=== PATIENT | female | born 1995 | race Caucasian/White ===

== ENCOUNTER 2018-07-10 18:39 | Emergency (ER) | payer BC, SELFPAY ==
[2018-07-10 18:41] VITALS: BP 121/67; PULSE 107; RESP 16; TEMP 36.7; O2SAT 98; BMI 23.7
--- NOTE | 2018-07-10 18:53 | RAD_ITS ---
STUDY: X-RAY - RIGHT WRIST REASON FOR EXAM: Female, 22 years old. Injury, fall. TECHNIQUE: 3 view(s) of the wrist were obtained. COMPARISON: None. FINDINGS: Normal visualized distal radius and ulna. Normal radiocarpal articulation. Normal distal radioulnar articulation. Normal carpal bones. Normal carpal articulations. Normal carpometacarpal articulation of the thumb. Normal second through fifth carpometacarpal articulations. Normal visualized metacarpal bones. The soft tissue structures are unremarkable. RAD/Wrist min 3 Views IMPRESSION: Normal x-ray examination of the wrist. Electronically Signed: Flora White MD at 20:02 EST Tel , Service support ,
--- NOTE | 2018-07-10 19:00 | RAD_ITS ---
STUDY: X-RAY - RIGHT HAND REASON FOR EXAM: Female, 22 years old. Injury. Patient fell. TECHNIQUE: 3 view(s) of the hand. COMPARISON: None. FINDINGS: Normal radiocarpal articulation. Normal distal radioulnar joint. Normal visualized carpal bones. Normal carpal articulations Normal carpometacarpal articulation of the thumb. Normal second through fifth carpometacarpal joints. Normal metacarpi. Normal metacarpophalangeal joint of the thumb. Normal interphalangeal joint of the thumb. Normal proximal and distal phalanges of the thumb. Normal metacarpophalangeal joints of the second through fifth fingers. Normal proximal and distal interphalangeal joints of the second through fifth fingers. Normal phalanges of the second through fifth fingers. The soft tissue structures are unremarkable. RAD/Hand Min 3 Views IMPRESSION: Normal x-ray examination of the hand. Electronically Signed: Flora White MD at 20:01 EST Tel , Service support ,
--- NOTE | 2018-07-10 19:25 | ED.VISSUMM ---
- ER Visit Summary Date of Service: 07/10/18 Chief Complaint: Right hand and wrist pain History of Present Illness: The patient is a 22 F presenting with right hand and wrist pain. Patient fell yesterday. She states she slipped on ice and fell catching herself with her right upper extremity. She did not hit her head or lose consciousness. She complains of persistent pain right hand and wrist. She is right-handed. Physical Examination: Vitals are stable. Patient is afebrile. Alert no acute distress. HEENT exam is unremarkable. Neck is supple. Lungs are clear and equal bilaterally. Heart is regular rate and rhythm. Extremities tenderness along the fourth and fifth metacarpal and diffuse right wrist. Active full range of motion. Skin is warm and dry. No focal neurologic deficit. Remainder of exam is unremarkable. Emergency Department Course and Treatment: X-ray right wrist and hand show no acute process. She is given a Velcro wrist splint. Advised to ice and elevate. Advised to follow-up with primary care physician. Advised return to ED if worsening complaints. Disposition: Discharge home Impression: Right wrist sprain This note was generated with [employer] dictation software. It may contain incorrect words, spelling, and punctuation that were not noted in review of the chart prior to signing ED Disposition - Plan for ED Patient: Instructions: ED Sprain Wrist Referrals: Augusto Simpson,Out of [Primary Care Provider] -
--- NOTE | 2018-07-10 20:08 | ED.DEP ---
ED Disposition - Plan for ED Patient: Instructions: ED Sprain Wrist Referrals: [facility],Out of [Primary Care Provider] -
[2018-07-10 20:27] VITALS: BP 118/68; PULSE 78; RESP 18; O2SAT 97
== END 2018-07-10 20:27 | disposition home or self-care (01) ==
LOC: ED 19:17
PROVIDERS: Emergency Provider Emergency Medicine
DX: S63.501A Unspecified sprain of right wrist, initial encounter (principal); W00.0XXA Fall on same level due to ice and snow, initial encounter; Y93.9 Activity, unspecified; Y92.89 Other specified places as the place of occurrence of the external cause; Y99.9 Unspecified external cause status
CPT/HCPCS: 73110; 73130; 99283